=== PATIENT | male | born 1960 | race Caucasian/White ===

== ENCOUNTER 2017-08-26 14:22 | Emergency (ER) | payer BC, OTHER ==
[2017-08-26 14:50] VITALS: BP 146/93; PULSE 86; TEMP 97.5; BMI 25.5
--- NOTE | 2017-08-26 15:32 | PDOC ---
History of Present Illness - General Chief Complaint: Injury Stated Complaint: ANKLE INJURY Time Seen by Provider: 08/26/17 14:51 Past History - Past Medical History Allergies/Adverse Reactions: Allergies Allergy/AdvReac Type Severity Reaction Status Date / Time No Known Allergies Allergy Verified 12/27/14 14:12 Home Medications: Ambulatory Orders Colchicine [Colcrys -] 0.6 mg PO BID #14 tablet 08/26/17 Ibuprofen 800 mg PO TID #30 tablet 08/26/17 COPD: No - Immunization History Immunization Up to Date: Yes - Suicide/Smoking/Psychosocial Hx Smoking Status: No Smoking History: Never smoked Have you smoked in the past 12 months: No Number of Cigarettes Smoked Daily: 0 Information on smoking cessation initiated: No Hx Alcohol Use: Yes Drug/Substance Use Hx: No Substance Use Type: Alcohol *Physical Exam - Vital Signs Last Vital Signs Temp Pulse Resp BP Pulse Ox 97.5 F L 86 17 146/93 100 08/26/17 14:30 08/26/17 14:30 08/26/17 14:30 08/26/17 14:30 08/26/17 14:30 ED Treatment Course - RADIOLOGY Radiology Studies Ordered: Category Date Time Status ANKLE & FOOT-LEFT* [RAD] Stat Radiology 08/26/17 15:12 Ordered *DC/Admit/Observation/Transfer Diagnosis at time of Disposition: Navicular fracture of ankle Qualifiers: Encounter type: sequela Fracture type: closed Fracture alignment: nondisplaced Laterality: left Qualified Code(s): S92.255S - Nondisplaced fracture of navicular [scaphoid] of left foot, sequela Gout Qualifiers: Gout site: foot Gout etiology: unspecified cause Chronicity: acute Laterality: left Qualified Code(s): M10.9 - Gout, unspecified - Discharge Dispostion Disposition: HOME Condition at time of disposition: Stable Decision to Admit order: No - Prescriptions Prescriptions: Colchicine [Colcrys -] 0.6 mg PO BID #14 tablet Ibuprofen 800 mg PO TID #30 tablet - Referrals Referrals: Meng Camacho MD [Staff Physician] - Tanvir Norwood MD [Staff Physician] - Jose D Holt MD [Staff Physician] - - Patient Instructions Printed Discharge Instructions: DI for Ankle Fracture, DI for Gout Additional Instructions: You have a broken bone in her foot. This is also caused by an ankle sprain. Please wear the hard shoe and Angelo wrap for the next week. Please follow-up with or so this week. A referral has been provided for you. You may ice the ankle, elevated to help reduce the swelling. He may take Motrin 800 mg every 8 hours as needed for pain. Please take the colchicine twice a day to help with her toe pain. Please follow-up with the primary care doctor this week. Return to emergency department if you have worsening pain, fevers, chills, or have any changes in her symptoms. - Post Discharge Activity
== END 2017-08-26 18:10 | disposition home or self-care (01) ==
LOC: JERFT 14:22 → JER 14:22 → JERFT 18:10
DX: S92.255A Nondisplaced fracture of navicular [scaphoid] of left foot, initial encounter for closed fracture (principal); M10.9 Gout, unspecified; X58.XXXA Exposure to other specified factors, initial encounter; Y93.89 Activity, other specified; Y92.9 Unspecified place or not applicable
CPT/HCPCS: 73610-TC-LT-FY; 73630-TC-LT; 99281-25

== ENCOUNTER 2024-09-07 14:39 | Emergency (ER) | payer BC, OTHER ==
[2024-09-07 15:06] VITALS: BP 137/94; PULSE 86; RESP 16; TEMP 97.9; BMI 24.3
[2024-09-07] MEDS ORDERED: MAG HYDROX/AL HYDROX/SIMETH 30 ML UNIT-DOSE CUP ONE (16:35)
[2024-09-07] MEDS ORDERED: FAMOTIDINE 20 MG TABLET ONE (16:35)
[2024-09-07] MEDS: FAMOTIDINE 20 MG TABLET PO ONE (16:56)
[2024-09-07] MEDS: MAG HYDROX/AL HYDROX/SIMETH -MYLANTA- ORAL SUSPENSION PO ONE (16:56)
[2024-09-07] MEDS ORDERED: KETOROLAC TROMETHAMINE 30 MG/1 ML VIAL ONE (17:54)
[2024-09-07] MEDS: KETOROLAC TROMETHAMINE 30 MG/1 ML VIAL IM ONE (18:16)
== END 2024-09-07 18:17 | disposition home or self-care (01) ==
LOC: JER 14:39
PROC: 3E0233Z Introduction of Anti-inflammatory into Muscle, Percutaneous Approach (ICD-10-PCS; principal; 2024-09-07)
DX: K21.9 Gastro-esophageal reflux disease without esophagitis (principal); M25.561 Pain in right knee; R11.10 Vomiting, unspecified
CPT/HCPCS: 73562-TC-RT-FY; 99284-25